=== PATIENT | female | born 1930 | race Asian ===

== ENCOUNTER 2016-07-08 19:03 | Emergency (ER) | payer MEDICARE, OTHER ==
[~2016-07-08] VITALS: Ht 87 cm; Wt 39.5 kg
[~2016-07-08 19:03] MED LIST: ANTIVERT 12.512.5 MG PO; HCTZ12.5TAB PO; LIPITOR 10MG10 MG PO; LOVENOX 4040 MG/0.4 SQ; NORVASC2.5 MG PO; PLAVIX 75MG TAB75 MG PO; TYLENOL 325MG325 MG PO; ZANTAC 150150 MG PO
[2016-07-08 19:07] VITALS: TEMP 98.3
[2016-07-08] MEDS ORDERED: CLARITIN 1010 MG/TAB PO (19:11)
[2016-07-08 19:55] LABS: BASO # 0.1 (0.0-0.2); BASO % 0.8 % (0.0-2.0); EOS # 0.2 (0.0-0.7); EOS % 3.3 % (0-4.0); GRAN # 3.1 (1.4-6.5); GRAN % 47.9 % (42.2-75.2); HEMOGLOBIN 11.6 g/dl (12.5-16.0); LYMPH # 2.6 (1.2-3.4); LYMPH % 40.2 % (20.0-51.0); MEAN CELL VOLUME 92 fl (80.0-100.0); MEAN CORPUSCULAR HEMOGLOBIN 30 pg (27.0-31.0); MEAN CORPUSCULAR HGB CONC 33 g/dl (33.0-37.0); MEAN PLATELET VOLUME 10.1 fl (7.4-10.4); MONO # 0.5 (0.1-0.6); MONO % 7.6 % (1.7-9.3); PLATELET COUNT 204 K/mm3 (130-400); RED BLOOD COUNT 3.81 M/mm3 (4.10-5.30); REDCELL DISTRIBUTION WIDTH-CV 12.6 % (11.5-14.5); WHITE BLOOD COUNT 6.5 K/mm3 (4.8-10.8)
[2016-07-08 20:06] LABS: ADJUSTED CALCIUM 9.6 mg/dL (8.4-10.2); ALANINE AMINOTRANSFERASE 49 U/L (9-52); ALBUMIN 4.1 gm/dL (3.5-5.0); ALKALINE PHOSPHATASE 353 U/L (50-136); ANION GAP 15 mmol/L (7-16); BLOOD UREA NITROGEN 17 mg/dL (7-17); CALCIUM 9.7 mg/dL (8.4-10.2); CARBON DIOXIDE 24 mmol/L (22-30); CHLORIDE 100 mmol/L (98-107); CREATININE, serum 0.68 mg/dL (0.52-1.25); GLUCOSE 118 mg/dL (74-106); POTASSIUM 3.5 mmol/L (3.4-5.0); SODIUM 139 mmol/L (137-145); TOTAL PROTEIN 7.8 gm/dL (6.4-8.2)
[2016-07-08 20:29] LABS: ERYTHROCYTE SEDIMENTATION RATE 26 mm/hr (0-30)
[2016-07-08 20:51] LABS: TROPONIN-I < 0.012 ng/mL (0.000-0.034)
[2016-07-08 21:04] LABS: PH 5 (5-8); SQUAMOUS EPITHELIAL None Seen /hpf; URINE APPEARANCE Clear; URINE BACTERIA None Seen /hpf; URINE BILIRUBIN Negative (NEGATIVE); URINE BLOOD Negative (NEGATIVE); URINE COLOR Yellow; URINE GLUCOSE Negative (NEGATIVE); URINE KETONE Trace (NEGATIVE); URINE RBC 0-2 /hpf; URINE UROBILINOGEN Negative (NEGATIVE); URINE WBC 0-2 /hpf
[2016-07-08] MEDS ORDERED: ANTIVERT 12.512.5 MG PO (21:54)
[2016-07-08 22:11] VITALS: BP 159/77; PULSE 95
== END 2016-07-08 22:12 | disposition home or self-care (01) ==
LOC: COL.ER 19:03
PROVIDERS: Emergency Medicine
DX: R42 Dizziness and giddiness (principal); R00.0 Tachycardia, unspecified; I10 Essential (primary) hypertension; I45.10 Unspecified right bundle-branch block; I69.354 Hemiplegia and hemiparesis following cerebral infarction affecting left non-dominant side
CPT/HCPCS: J7040

== ENCOUNTER 2017-03-04 19:11 | Emergency (ER) | payer MEDICARE, OTHER ==
[~2017-03-04] VITALS: Ht 139.7 cm; Wt 38.6 kg
[~2017-03-04 19:11] MED LIST changes: +CLARITIN 1010 MG/TAB PO
[2017-03-04] MEDS ORDERED: TYLENOL 500MG500 MG PO (20:05)
[2017-03-04 20:23] LABS: BASO # 0.1 (0.0-0.2); BASO % 0.4 % (0.0-2.0); EOS # 0.1 (0.0-0.7); EOS % 0.6 % (0-4.0); GRAN # 11.1 (1.4-6.5); LYMPH # 0.7 (1.2-3.4); LYMPH % 5.6 % (20.0-51.0); MEAN CELL VOLUME 92 fl (80.0-100.0); MEAN CORPUSCULAR HGB CONC 34 g/dl (33.0-37.0); MEAN PLATELET VOLUME 9.3 fl (7.4-10.4); MONO # 0.9 (0.1-0.6); MONO % 7.1 % (1.7-9.3); PLATELET COUNT 222 K/mm3 (130-400); RED BLOOD COUNT 3.66 M/mm3 (4.10-5.30); WHITE BLOOD COUNT 12.9 K/mm3 (4.8-10.8)
[2017-03-04 20:25] LABS: HEMATOCRIT 33.5 % (37.0-47.0); HEMOGLOBIN 11.5 g/dl (12.5-16.0); MEAN CORPUSCULAR HEMOGLOBIN 31 pg (27.0-31.0)
[2017-03-04 20:35] LABS: ADJUSTED CALCIUM 9.2 mg/dL (8.4-10.2); ALBUMIN 4.2 gm/dL (3.5-5.0); BILIRUBIN,TOTAL 0.8 mg/dL (0.0-1.0); CALCIUM 9.4 mg/dL (8.4-10.2); CREATININE, serum 0.77 mg/dL (0.52-1.25); POTASSIUM 4.1 mmol/L (3.4-5.0); TOTAL PROTEIN 8.1 gm/dL (6.4-8.2)
[2017-03-04 20:41] LABS: COLLECTION METHOD CATHETER
[2017-03-04 20:47] LABS: MUCOUS Present /lpf; PH 7 (5-8); SQUAMOUS EPITHELIAL None Seen /hpf; URINE APPEARANCE Clear; URINE BACTERIA None Seen /hpf; URINE BILIRUBIN Negative (NEGATIVE); URINE BLOOD Negative (NEGATIVE); URINE COLOR Yellow; URINE GLUCOSE Negative (NEGATIVE); URINE KETONE Negative (NEGATIVE); URINE LEUKOCYTE ESTERASE Negative (NEGATIVE); URINE PROTEIN(semi-quant) Negative (NEGATIVE); URINE RBC 0-2 /hpf; URINE WBC 0-2 /hpf
[2017-03-04 21:49] LABS: INFLUENZA A NEGATIVE; INFLUENZA B NEGATIVE
[2017-03-04] MEDS ORDERED: CEFTIN500 MG PO (22:26)
[2017-03-04 22:57] VITALS: BP 145/72; PULSE 93; TEMP 99.7
== END 2017-03-04 22:57 | disposition home or self-care (01) ==
LOC: COL.ER 19:11
PROVIDERS: Emergency Medicine
DX: R74.8 Abnormal levels of other serum enzymes (principal); R50.9 Fever, unspecified
CPT/HCPCS: J1885; J7030

== ENCOUNTER 2018-04-14 21:58 | Emergency (ER) | payer MEDICARE, OTHER ==
[~2018-04-14] VITALS: Ht 142.2 cm; Wt 36.4 kg
[~2018-04-14 21:58] MED LIST changes: +CEFTIN500 MG PO; +TYLENOL 500MG500 MG PO
[2018-04-14] MEDS ORDERED: ZYRTEC 10MG10 MG PO (22:44)
[2018-04-14] MEDS ORDERED: ZYRTEC5 MG PO (22:44)
[2018-04-14] MEDS ORDERED: D3-5050000 IU (22:44)
[2018-04-14 22:58] LABS: BASO % 0.3 % (0.0-2.0); EOS # 0.1 (0.0-0.7); EOS % 0.7 % (0-4.0); GRAN # 8.3 (1.4-6.5); GRAN % 77.5 % (42.2-75.2); HEMOGLOBIN 11.3 g/dl (12.5-16.0); LYMPH # 1.3 (1.2-3.4); LYMPH % 12.2 % (20.0-51.0); MEAN CELL VOLUME 90 fl (80.0-100.0); MEAN CORPUSCULAR HEMOGLOBIN 30 pg (27.0-31.0); MEAN CORPUSCULAR HGB CONC 33 g/dl (33.0-37.0); MEAN PLATELET VOLUME 10.1 fl (7.4-10.4); PLATELET COUNT 173 K/mm3 (130-400); RED BLOOD COUNT 3.74 M/mm3 (4.10-5.30); REDCELL DISTRIBUTION WIDTH-CV 12.7 % (11.5-14.5)
[2018-04-14 22:59] LABS: HEMATOCRIT 33.8 % (37.0-47.0)
[2018-04-14 23:13] LABS: ALANINE AMINOTRANSFERASE 58 U/L (9-52); ALKALINE PHOSPHATASE 409 U/L (50-136); ANION GAP 8 mmol/L (7-16); AST,SGOT 95 U/L (15-37); BILIRUBIN,TOTAL 0.7 mg/dL (0.0-1.0); BLOOD UREA NITROGEN 20 mg/dL (7-17); CALCIUM 9.3 mg/dL (8.4-10.2); CARBON DIOXIDE 31 mmol/L (22-30); CHLORIDE 93 mmol/L (98-107); GLUCOSE 124 mg/dL (74-106); POTASSIUM 3.7 mmol/L (3.4-5.0); SODIUM 131 mmol/L (137-145); TOTAL PROTEIN 7.8 gm/dL (6.4-8.2)
[2018-04-14 23:20] LABS: COLLECTION METHOD CLEAN CATCH
[2018-04-14 23:22] LABS: TROPONIN-I < 0.012 ng/mL (0.000-0.034)
[2018-04-14 23:25] LABS: PH 7 (5-8); SQUAMOUS EPITHELIAL 0-2 /hpf; URINE APPEARANCE Clear; URINE BACTERIA None Seen /hpf; URINE BILIRUBIN Negative (NEGATIVE); URINE BLOOD Negative (NEGATIVE); URINE COLOR Yellow; URINE GLUCOSE Negative (NEGATIVE); URINE KETONE Negative (NEGATIVE); URINE LEUKOCYTE ESTERASE Negative (NEGATIVE); URINE NITRATE Negative (NEGATIVE); URINE PROTEIN(semi-quant) Negative (NEGATIVE); URINE RBC 0-2 /hpf; URINE UROBILINOGEN Negative (NEGATIVE)
[2018-04-15 00:25] VITALS: BP 169/79; PULSE 98; TEMP 99.4
== END 2018-04-15 00:49 | disposition short-term general hospital (02) ==
LOC: COL.ER 21:58
PROVIDERS: Emergency Medicine
DX: I69.354 Hemiplegia and hemiparesis following cerebral infarction affecting left non-dominant side (principal); R51 Headache; R53.1 Weakness; R53.81 Other malaise; I10 Essential (primary) hypertension; E78.5 Hyperlipidemia, unspecified; Z87.891 Personal history of nicotine dependence; Z79.02 Long term (current) use of antithrombotics/antiplatelets
CPT/HCPCS: J7040

== ENCOUNTER 2018-11-03 14:45 | Outpatient (RCR) | payer MEDICARE, OTHER ==
[~2018-11-03 14:45] MED LIST changes: +D3-5050000 IU; +ZYRTEC 10MG10 MG PO; +ZYRTEC5 MG PO
== END 2019-01-01 | disposition still patient (30) ==
LOC: MKS.ESL.PT
DX: M21.372 Foot drop, left foot (principal)